=== PATIENT | male | born 1965 | race Caucasian/White ===

== ENCOUNTER 2023-12-05 11:33 | Emergency (ER) | payer BC ==
[~2023-12-05] VITALS: Ht 177.8 cm; Wt 97.5 kg
[2023-12-05 11:57] VITALS: BP_SYST 124; PULSE 112; RESP 18; TEMP 97.1; O2SAT 97
[2023-12-05] MEDS: HYDROcodone/ACETAMIN 5-325 MG TAB (NORCO/ VICODIN) PO ONE (13:10)
[2023-12-05] MEDS ORDERED: HYDR-3927 PO (13:44)
[2023-12-05 13:52] VITALS: BP_SYST 120; PULSE 112; RESP 18; TEMP 97.1; O2SAT 97
== END 2023-12-05 13:54 | disposition home or self-care (01) ==
LOC: SED 11:33
DX: S80.01XA Contusion of right knee, initial encounter (principal); M17.11 Unilateral primary osteoarthritis, right knee; E11.9 Type 2 diabetes mellitus without complications; Z98.890 Other specified postprocedural states; Z79.899 Other long term (current) drug therapy; W01.0XXA Fall on same level from slipping, tripping and stumbling without subsequent striking against object, initial encounter; Y93.89 Activity, other specified; Y92.89 Other specified places as the place of occurrence of the external cause; Y99.8 Other external cause status
CPT/HCPCS: 73564; 99283